=== PATIENT | female | born 1950 | race Two or more races ===

== ENCOUNTER 2019-05-01 12:22 | Inpatient (IN) | payer OTHER ==
[~2019-05-01] VITALS: Ht 165.1 cm; Wt 68.9 kg
[2019-05-04] MEDS ORDERED: PLAVIX75 MG ×2 (12:04→12:05)
[2019-05-04] MEDS ORDERED: ULTRAM50 MG (12:05)
[2019-05-04] MEDS ORDERED: TOPROL XL50 M1 (12:05)
[2019-05-04] MEDS ORDERED: SYNTHROID88 MCG (12:05)
[2019-05-04] MEDS ORDERED: ZESTRIL10 M1 (12:05)
[2019-05-04] MEDS ORDERED: KEPPRA500 MG (12:06)
[2019-05-09] MEDS ORDERED: ACETAMINOPHEN-1 EAC2 PO (13:55)
[2019-05-09] MEDS ORDERED: COLACE100 MG PO (13:56)
[2019-05-09] MEDS ORDERED: CLONAZEPAM0.5 MG PO (13:56)
== END 2019-05-10 12:16 | disposition home or self-care (01) | DRG 455 ==
LOC: SURG 05-04 09:30 → O/R 05-09 06:23 → SURG 05-09 06:23
PROVIDERS: ADMIT Orthopaedic Surgery Orthopaedic Surgery of the Spine
PROC: 0RG2071 Fusion of 2 or more Cervical Vertebral Joints with Autologous Tissue Substitute, Posterior Approach, Posterior Column, Open Approach (ICD-10-PCS; 2019-05-09)
PROC: 0RT30ZZ Resection of Cervical Vertebral Disc, Open Approach (ICD-10-PCS; 2019-05-09)
PROC: 07DS3ZZ Extraction of Vertebral Bone Marrow, Percutaneous Approach (ICD-10-PCS; 2019-05-09)
PROC: 0RG20A0 Fusion of 2 or more Cervical Vertebral Joints with Interbody Fusion Device, Anterior Approach, Anterior Column, Open Approach (ICD-10-PCS; principal; 2019-05-09 13:30)
DX: M50.01 Cervical disc disorder with myelopathy, high cervical region (principal); I10 Essential (primary) hypertension; E03.8 Other specified hypothyroidism